=== PATIENT | male | born 1995 | race Caucasian/White ===

== ENCOUNTER 2020-06-10 23:25 | Emergency (ER) | payer OTHER ==
[~2020-06-10] VITALS: Ht 175.3 cm; Wt 104.3 kg
[2020-06-10 23:35] VITALS: BP_SYST 139
--- NOTE | 2020-06-10 23:40 | NUR ---
PT TO REMAIN IN LOBBY FOR AVAILABLE ER BED.
--- NOTE | 2020-06-11 01:23 | NUR ---
Patient to ER bed 7 to gown for evaluation. Side rails up. Report given to
--- NOTE | 2020-06-11 01:23 | NUR ---
Patient presented for pain and swelling around his anus. Pain developed around 2 weeks ago, worsening 1 week back. 2 days ago he noted a swelling on his anus. Sitting made the pain worse. No fever or vomiting. No similar symptoms previously.
--- NOTE | 2020-06-11 01:28 | NUR ---
ER at bedside examining patient.
[2020-06-11] MEDS ORDERED: LIDOCAINE/EPI 1% 1:100000 20 ML VIAL INJ ONE ×2 (03:21→03:42)
[2020-06-11 04:00] VITALS: BP_SYST 133
--- NOTE | 2020-06-11 04:00 | NUR ---
Patient given written and verbal discharge instructions and verbalizes understanding. ER MD discussed with patient the results and treatment provided. Patient in stable condition. ID arm band removed. No IV Rx of augmentin, motrin given. Patient educated on pain management and to follow up with PMD. Pain Scale 2/10. Opportunity for questions provided and answered. Medication side effect fact sheet provided.
== END 2020-06-11 04:00 | disposition home or self-care (01) ==
LOC: SED 23:25
DX: K61.0 Anal abscess (principal)
CPT/HCPCS: 99284

== ENCOUNTER 2020-06-13 11:39 | Emergency (ER) | payer OTHER ==
[~2020-06-13] VITALS: Ht 175.3 cm; Wt 104.3 kg
[2020-06-13 12:39] VITALS: BP_SYST 132
[2020-06-13 14:14] VITALS: BP_SYST 132
== END 2020-06-13 14:14 | disposition home or self-care (01) ==
LOC: SED 11:39
DX: Z48.00 Encounter for change or removal of nonsurgical wound dressing (principal)
CPT/HCPCS: 99283